=== PATIENT | female | born 1940 | race African-American/Black ===

== ENCOUNTER 2017-12-02 13:25 | Emergency (ER) | payer MEDICARE, MEDICAID ==
[~2017-12-02] VITALS: Ht 154.9 cm; Wt 78.0 kg
[~2017-12-02 13:25] MED LIST: ALBU6.7H IH; ASPI-986 PO; ATOR20TA PO; BACL-141 PO; BENZ100C86 PO; BIOTIN; CLOP75TA16 PO; DIPHENHYDRAMINE; FLUTICASONE; LORATADINE; MESA400T14 PO; MONT10TA21 PO; OMEP40CA34 PO; POTASSIUM; SYMBI INH; TRAM50TA3 PO
[2017-12-02] MEDS ORDERED: DEXAMETHASONE 4MG/ML 1ML VIAL IM ONE ×2 (18:45→19:00)
[2017-12-02] MEDS ORDERED: KETOROLAC 60MG/2ML VIAL IM ONE (18:45)
[2017-12-02 19:09] VITALS: BP 170/90
== END 2017-12-02 19:21 | disposition home or self-care (01) ==
LOC: ER 13:25
DX: M54.42 Lumbago with sciatica, left side (principal); L30.4 Erythema intertrigo; I10 Essential (primary) hypertension; Z88.0 Allergy status to penicillin; Z88.2 Allergy status to sulfonamides; Z88.1 Allergy status to other antibiotic agents; Z88.5 Allergy status to narcotic agent; Z88.8 Allergy status to other drugs, medicaments and biological substances; Z79.82 Long term (current) use of aspirin; Z79.01 Long term (current) use of anticoagulants
CPT/HCPCS: 96372; 99284; J1100; J1885

== ENCOUNTER 2018-09-13 11:21 | Inpatient (IN) | payer MEDICARE, MEDICAID ==
[~2018-09-13] VITALS: Ht 156.2 cm; Wt 69.4 kg
[2018-09-13] MEDS ORDERED: ACETAMINOPHEN 325MG TABLET PO STA (12:55)
[2018-09-13] MEDS ORDERED: ASPIRIN 325MG EC TABLET PO ONE (13:00)
[2018-09-13 13:22] LABS: BASOPHILS % 1.1 % (0.0-2.0); EOSINOPHILS % 0.4 % (0.0-5.0); HEMATOCRIT. 38.3 % (36.0-48.0); HEMOGLOBIN. 12.6 g/dL (12.0-16.0); LYMPHOCYTES % 42.1 % (20.0-50.0); MEAN CORPUSCULAR HEMOGLOBIN 26.9 pg (28.0-32.0); MEAN CORPUSCULAR VOLUME 81.5 fL (81.0-99.0); MEAN PLATELET VOLUME 7.3 fl (7.4-10.4); MONOCYTES % 7.3 % (2.0-8.0); NEUTROPHILS % 49.1 % (40.0-76.0); PLATELET 214 x1000/uL (130-400); RED CELL DISTRIBUTION WIDTH 16.3 % (11.6-14.6)
[2018-09-13 13:28] LABS: CHLORIDE 104 mEq/L (98-107)
[2018-09-13] MEDS ORDERED: BENZONATATE 100MG CAPSULE PO PRN (19:00)
[2018-09-13] MEDS ORDERED: ONDANSETRON HCL 4MG/2ML INJ IV PRN (19:00)
[2018-09-13] MEDS ORDERED: GUAIFENESIN 200MG/10ML SUGAR FREE UDC PO PRN (19:00)
[2018-09-13] MEDS ORDERED: IPRATROPIUM/ALBUTEROL 0.5-3(2.5)MG/3ML NEB INH PRN (19:00)
[2018-09-13] MEDS ORDERED: DOCUSATE SODIUM 100MG CAPSULE PO PRN (19:00)
[2018-09-13] MEDS ORDERED: CLONIDINE 0.1MG TABLET PO PRN (19:00)
[2018-09-13] MEDS ORDERED: DIPHENHYDRAMINE 50MG CAPSULE PO PRN (19:00)
[2018-09-13] MEDS ORDERED: BACLOFEN 10MG TABLET PO PRN (19:00)
[2018-09-13 20:00] VITALS: BP 126/57
[2018-09-13] MEDS: ATORVASTATIN CALCIUM 20MG TABLET PO SCH (21:43)
[2018-09-13] MEDS ORDERED: LORA10TA7 PO (22:27)
[2018-09-13] MEDS ORDERED: RANO10003 PO (22:31)
[2018-09-13] MEDS ORDERED: HYDR25TA PO (22:32)
[2018-09-13] MEDS ORDERED: ATEN50TA PO (22:33)
[2018-09-13] MEDS ORDERED: BUDE6HFA INH (22:34)
[2018-09-14] MEDS: BUDESONIDE 0.5MG/2ML NEB HHN SCH ×3 (00:09→20:21)
[2018-09-14] MEDS: ALBUTEROL (0.083%) 2.5MG/3ML NEB HHN SCH ×4 (00:09→20:21)
[2018-09-14 00:36] VITALS: BP 105/57
[2018-09-14 04:00] VITALS: BP 109/56
[2018-09-14 07:00] LABS: BASOPHILS % 0.4 % (0.0-2.0); EOSINOPHILS % 0.3 % (0.0-5.0); HEMATOCRIT. 35.9 % (36.0-48.0); HEMOGLOBIN. 12.1 g/dL (12.0-16.0); LYMPHOCYTES % 39.6 % (20.0-50.0); MEAN CORPUSCULAR HEMOGLOBIN 27.4 pg (28.0-32.0); MEAN CORPUSCULAR VOLUME 81.4 fL (81.0-99.0); MEAN PLATELET VOLUME 7.5 fl (7.4-10.4); MONOCYTES % 7.2 % (2.0-8.0); NEUTROPHILS % 52.5 % (40.0-76.0); PLATELET 207 x1000/uL (130-400); RED BLOOD CELL COUNT 4.41 mill/uL (4.2-5.4)
[2018-09-14 08:05] VITALS: BP 115/58
[2018-09-14] MEDS: MESALAMINE 400 MG CAPSULE.DR PO SCH ×3 (08:38→16:09)
[2018-09-14] MEDS: OMEPRAZOLE 20MG CAPSULE EXTENDED RELEASE PO SCH (08:38)
[2018-09-14] MEDS: CLOPIDOGREL 75MG TABLET PO SCH (08:38)
[2018-09-14] MEDS: ATENOLOL 50 MG TABLET PO SCH (08:39)
[2018-09-14] MEDS: ASPIRIN 325MG EC TABLET PO SCH (08:39)
[2018-09-14] MEDS ORDERED: FLUTICASONE/VILANTEROL 200-25 BLST.W.DEV ORI SCH (09:00)
[2018-09-14 10:05] LABS: CHLORIDE 105 mEq/L (98-107)
[2018-09-14 12:00] VITALS: BP 112/62
[2018-09-14] MEDS: ACETAMINOPHEN 325MG TABLET PO PRN (13:46)
[2018-09-14] MEDS: NITROGLYCERIN OINT 1GM/INCH UDPKT TD SCH ×2 (13:47→21:44)
[2018-09-14 16:00] VITALS: BP 97/48
[2018-09-14] MEDS ORDERED: MONTELUKAST SODIUM 10MG TABLET PO SCH (17:00)
[2018-09-14 20:00] VITALS: BP 112/65
[2018-09-14] MEDS: ATORVASTATIN CALCIUM 20MG TABLET PO SCH (21:44)
[2018-09-15] VITALS: BP 123/72
[2018-09-15] MEDS: ALBUTEROL (0.083%) 2.5MG/3ML NEB HHN SCH ×2 (01:50→09:46)
[2018-09-15 04:00] VITALS: BP 98/54
[2018-09-15] MEDS: ACETAMINOPHEN 325MG TABLET PO PRN (04:08)
[2018-09-15] MEDS: NITROGLYCERIN OINT 1GM/INCH UDPKT TD SCH ×2 (05:53→14:00)
[2018-09-15 07:34] LABS: BASOPHILS % 0.3 % (0.0-2.0); EOSINOPHILS % 0.1 % (0.0-5.0); HEMATOCRIT. 35.3 % (36.0-48.0); HEMOGLOBIN. 11.6 g/dL (12.0-16.0); LYMPHOCYTES % 36.9 % (20.0-50.0); MEAN CORPUSCULAR HEMOGLOBIN 26.8 pg (28.0-32.0); MEAN CORPUSCULAR VOLUME 81.3 fL (81.0-99.0); MEAN PLATELET VOLUME 7.5 fl (7.4-10.4); MONOCYTES % 7.4 % (2.0-8.0); NEUTROPHILS % 55.3 % (40.0-76.0); PLATELET 204 x1000/uL (130-400); RED BLOOD CELL COUNT 4.34 mill/uL (4.2-5.4)
[2018-09-15 08:00] VITALS: BP 103/51
[2018-09-15 08:10] LABS: CHLORIDE 106 mEq/L (98-107)
[2018-09-15] MEDS: ATENOLOL 50 MG TABLET PO SCH (09:00)
[2018-09-15] MEDS: ASPIRIN 325MG EC TABLET PO SCH (09:09)
[2018-09-15] MEDS: OMEPRAZOLE 20MG CAPSULE EXTENDED RELEASE PO SCH (09:09)
[2018-09-15] MEDS: CLOPIDOGREL 75MG TABLET PO SCH (09:09)
[2018-09-15] MEDS: MESALAMINE 400 MG CAPSULE.DR PO SCH ×2 (09:09→12:02)
[2018-09-15] MEDS: THROAT LOZENGES-BENZOCAINE/MENTH/CETYLPYRD CL LOZENGES MM SCH ×2 (09:10→12:02)
[2018-09-15] MEDS: BUDESONIDE 0.5MG/2ML NEB HHN SCH (09:46)
[2018-09-15 12:00] VITALS: BP 120/64
[2018-09-15 13:49] VITALS: BP 120/64
[2018-09-16] MEDS ORDERED: FAMOTIDINE 20MG TABLET PO SCH (09:00)
[2018-09-17 23:32] LABS: VITAMIN B12 SERUM 360 pg/mL (211-911)
== END 2018-09-15 15:28 | disposition home or self-care (01) | DRG 313 ==
LOC: ER 12:55 → 7WST 14:52 → EDBEDREQ 14:53 → EDBEDREQTM 14:53 → ENRESERV 15:26
PROVIDERS: ADMIT Internal Medicine; ATTEND Internal Medicine
DX: R07.9 Chest pain, unspecified (principal); K51.911 Ulcerative colitis, unspecified with rectal bleeding; I42.9 Cardiomyopathy, unspecified; K51.90 Ulcerative colitis, unspecified, without complications; J02.9 Acute pharyngitis, unspecified; I50.9 Heart failure, unspecified; J44.9 Chronic obstructive pulmonary disease, unspecified; M19.90 Unspecified osteoarthritis, unspecified site; D63.8 Anemia in other chronic diseases classified elsewhere; J38.2 Nodules of vocal cords; I25.10 Atherosclerotic heart disease of native coronary artery without angina pectoris; E04.2 Nontoxic multinodular goiter; G47.33 Obstructive sleep apnea (adult) (pediatric); I11.0 Hypertensive heart disease with heart failure; I73.9 Peripheral vascular disease, unspecified; R00.1 Bradycardia, unspecified; J32.0 Chronic maxillary sinusitis; Z82.3 Family history of stroke; Z82.49 Family history of ischemic heart disease and other diseases of the circulatory system; Z83.3 Family history of diabetes mellitus; Z86.718 Personal history of other venous thrombosis and embolism; Z90.710 Acquired absence of both cervix and uterus; I25.2 Old myocardial infarction; Z95.5 Presence of coronary angioplasty implant and graft; Z88.0 Allergy status to penicillin; Z88.2 Allergy status to sulfonamides; Z88.1 Allergy status to other antibiotic agents; Z88.8 Allergy status to other drugs, medicaments and biological substances; Z79.51 Long term (current) use of inhaled steroids; Z79.899 Other long term (current) drug therapy; Z79.82 Long term (current) use of aspirin
CPT/HCPCS: 36415; 70490; 71045; 80048; 82040; 82607; 83880; 84439; 84484; 93005; 93306; 94640; 99285; J7611; J7626

== ENCOUNTER 2019-01-19 10:12 | Inpatient (IN) | payer MEDICAID, MEDICARE ==
[~2019-01-19] VITALS: Ht 154.9 cm; Wt 74.4 kg
[~2019-01-19 10:12] MED LIST changes: +ATEN50TA PO; -BIOTIN; +BUDE6HFA INH; -DIPHENHYDRAMINE; -FLUTICASONE; +HYDR25TA PO; +LORA10TA7 PO; -LORATADINE; -POTASSIUM; +RANO10003 PO; -SYMBI INH; -TRAM50TA3 PO
[2019-01-19] MEDS ORDERED: SODIUM CHLORIDE 0.9% 1,000 ML IV ONE (11:26)
[2019-01-19] MEDS ORDERED: ACETAMINOPHEN 325MG TABLET PO STA (11:26)
[2019-01-19 11:53] LABS: BASOPHILS % 1.1 % (0.0-2.0); EOSINOPHILS % 0.4 % (0.0-5.0); HEMATOCRIT. 37.5 % (36.0-48.0); HEMOGLOBIN. 12.3 g/dL (12.0-16.0); LYMPHOCYTES % 25.8 % (20.0-50.0); MEAN CORPUSCULAR HEMOGLOBIN 27.9 pg (28.0-32.0); MEAN CORPUSCULAR VOLUME 84.9 fL (81.0-99.0); MONOCYTES % 6.9 % (2.0-8.0); NEUTROPHILS % 65.8 % (40.0-76.0); PLATELET 225 x1000/uL (130-400); RED BLOOD CELL COUNT 4.42 mill/uL (4.2-5.4)
[2019-01-19 11:55] LABS: CHLORIDE 106 mEq/L (98-107)
[2019-01-19] MEDS ORDERED: METHYLPREDNISOLONE SOD SUCC 125 MG/2 ML VIAL IV SCH (14:00)
[2019-01-19] MEDS ORDERED: ALBUTEROL (0.083%) 2.5MG/3ML NEB HHN ONE (14:00)
[2019-01-19] MEDS ORDERED: POTASSIUM CHLORIDE 20MEQ TABLET SR PO ONE (14:45)
[2019-01-19 15:53] LABS: CLARITY URINE CLEAR (CLEAR); COLOR URINE YELLOW (YELLOW); KETONES URINE NEGATIVE (NEGATIVE); LEUKOCYTE ESTERASE URINE TRACE (NEGATIVE); NITRITE URINE NEGATIVE (NEGATIVE); OCCULT BLOOD URINE NEGATIVE (NEGATIVE); PH URINE 7.5 (4.5-8.0); PROTEIN URINE NEGATIVE (NEGATIVE); SPECIFIC GRAVITY URINE 1.013 (1.005-1.030); UROBILINOGEN URINE 0.2 E.U./dL (0.2-1.0)
[2019-01-19 17:20] VITALS: BP 155/72
[2019-01-19] MEDS ORDERED: DOCUSATE SODIUM 100MG CAPSULE PO PRN (19:45)
[2019-01-19] MEDS ORDERED: CLONIDINE 0.1MG TABLET PO PRN (19:45)
[2019-01-19] MEDS ORDERED: LORAZEPAM 0.5MG TABLET PO PRN (19:45)
[2019-01-19] MEDS ORDERED: IPRATROPIUM/ALBUTEROL 0.5-3(2.5)MG/3ML NEB INH PRN (19:45)
[2019-01-19] MEDS ORDERED: ONDANSETRON HCL 4MG/2ML INJ IV PRN (19:45)
[2019-01-19 20:00] VITALS: BP 141/75
[2019-01-19] MEDS ORDERED: ALBUTEROL 6.7GM HFA INHALER ORI PRN (20:15)
[2019-01-19] MEDS: DEXT 5%/0.45% NACL 1000ML 1,000 ML IV SCH (21:13)
[2019-01-19] MEDS: METHYLPREDNISOLONE SOD SUCC 40 MG/ML VIAL IV SCH (21:17)
[2019-01-19] MEDS: BENZONATATE 100MG CAPSULE PO SCH (21:18)
[2019-01-19] MEDS ORDERED: ALBUTEROL (0.083%) 2.5MG/3ML NEB HHN PRN (22:00)
[2019-01-19] MEDS: MONTELUKAST SODIUM 10MG TABLET PO SCH (22:13)
[2019-01-19] MEDS: POTASSIUM CHLORIDE 20MEQ TABLET SR PO SCH (22:13)
[2019-01-19] MEDS: ATORVASTATIN CALCIUM 20MG TABLET PO SCH (22:13)
[2019-01-19] MEDS: OMEPRAZOLE 20MG CAPSULE EXTENDED RELEASE PO SCH (22:13)
[2019-01-19] MEDS: RANOLAZINE 500 MG TAB.SR.12H PO SCH (22:14)
[2019-01-20] VITALS: BP 153/79
[2019-01-20] MEDS: IPRATROPIUM/ALBUTEROL 0.5-3(2.5)MG/3ML NEB HHN SCH ×6 (01:55→21:14)
[2019-01-20 04:00] VITALS: BP 158/83
[2019-01-20] MEDS: METHYLPREDNISOLONE SOD SUCC 40 MG/ML VIAL IV SCH ×3 (05:36→21:48)
[2019-01-20] MEDS: OMEPRAZOLE 20MG CAPSULE EXTENDED RELEASE PO SCH (05:36)
[2019-01-20] MEDS: BENZONATATE 100MG CAPSULE PO SCH ×3 (05:36→21:30)
[2019-01-20] MEDS ORDERED: ALBUTEROL (0.083%) 2.5MG/3ML NEB HHN SCH (06:00)
[2019-01-20 08:00] VITALS: BP 150/86
[2019-01-20 08:01] LABS: BASOPHILS % 0.1 % (0.0-2.0); HEMATOCRIT. 37.2 % (36.0-48.0); HEMOGLOBIN. 12.5 g/dL (12.0-16.0); LYMPHOCYTES % 9.9 % (20.0-50.0); MEAN CORPUSCULAR HEMOGLOBIN 28.3 pg (28.0-32.0); MEAN CORPUSCULAR VOLUME 84.2 fL (81.0-99.0); MEAN PLATELET VOLUME 7.3 fl (7.4-10.4); MONOCYTES % 1.3 % (2.0-8.0); NEUTROPHILS % 88.7 % (40.0-76.0); PLATELET 228 x1000/uL (130-400); RED BLOOD CELL COUNT 4.41 mill/uL (4.2-5.4); RED CELL DISTRIBUTION WIDTH 15.7 % (11.6-14.6)
[2019-01-20] MEDS: CLOPIDOGREL 75MG TABLET PO SCH (08:15)
[2019-01-20] MEDS: RANOLAZINE 500 MG TAB.SR.12H PO SCH ×2 (08:15→21:30)
[2019-01-20] MEDS: POTASSIUM CHLORIDE 20MEQ TABLET SR PO SCH (08:15)
[2019-01-20] MEDS: HYDROCHLOROTHIAZIDE 25MG TABLET PO SCH (08:15)
[2019-01-20] MEDS: MESALAMINE 400 MG CAPSULE.DR PO SCH ×3 (08:15→17:08)
[2019-01-20 08:16] LABS: CHLORIDE 111 mEq/L (98-107)
[2019-01-20] MEDS: ATENOLOL 50 MG TABLET PO SCH (08:16)
[2019-01-20 08:22] LABS: PHOSPHORUS 1.5 mg/dL (2.5-4.9)
[2019-01-20] MEDS ORDERED: FLUTICASONE/VILANTEROL 200-25 BLST.W.DEV ORI SCH (09:00)
[2019-01-20] MEDS: BUDESONIDE 0.5MG/2ML NEB HHN SCH ×2 (09:20→21:14)
[2019-01-20] MEDS: GUAIFENESIN 200MG/10ML SUGAR FREE UDC PO PRN (10:26)
[2019-01-20 12:00] VITALS: BP 144/72
[2019-01-20] MEDS: ACETAMINOPHEN 325MG TABLET PO PRN ×2 (12:15→17:15)
[2019-01-20] MEDS: GUAIFENESIN-DM 200MG-20MG/10ML UDC PO PRN (14:41)
[2019-01-20] MEDS: ENOXAPARIN 40MG/0.4ML SYR SUBCUT SCH (14:42)
[2019-01-20] MEDS: DEXT 5%/0.45% NACL 1000ML 1,000 ML IV SCH (14:52)
[2019-01-20 16:00] VITALS: BP 148/79
[2019-01-20] MEDS: MONTELUKAST SODIUM 10MG TABLET PO SCH (17:08)
[2019-01-20 20:22] VITALS: BP 135/73
[2019-01-20] MEDS: ATORVASTATIN CALCIUM 20MG TABLET PO SCH (21:30)
[2019-01-21] VITALS: BP 146/70
[2019-01-21] MEDS: IPRATROPIUM/ALBUTEROL 0.5-3(2.5)MG/3ML NEB HHN SCH ×4 (00:34→20:15)
[2019-01-21 04:00] VITALS: BP 141/75
[2019-01-21] MEDS: METHYLPREDNISOLONE SOD SUCC 40 MG/ML VIAL IV SCH ×3 (06:21→21:03)
[2019-01-21] MEDS: OMEPRAZOLE 20MG CAPSULE EXTENDED RELEASE PO SCH (07:04)
[2019-01-21] MEDS: BENZONATATE 100MG CAPSULE PO SCH ×3 (07:05→21:04)
[2019-01-21 08:00] VITALS: BP 126/78
[2019-01-21] MEDS: BUDESONIDE 0.5MG/2ML NEB HHN SCH ×2 (08:20→20:15)
[2019-01-21] MEDS: MESALAMINE 400 MG CAPSULE.DR PO SCH ×3 (08:45→16:51)
[2019-01-21] MEDS: POTASSIUM CHLORIDE 20MEQ TABLET SR PO SCH (08:45)
[2019-01-21] MEDS: HYDROCHLOROTHIAZIDE 25MG TABLET PO SCH (08:45)
[2019-01-21] MEDS: ATENOLOL 50 MG TABLET PO SCH (08:46)
[2019-01-21] MEDS: CLOPIDOGREL 75MG TABLET PO SCH (08:46)
[2019-01-21] MEDS: ENOXAPARIN 40MG/0.4ML SYR SUBCUT SCH (08:46)
[2019-01-21] MEDS: RANOLAZINE 500 MG TAB.SR.12H PO SCH ×2 (08:46→21:04)
[2019-01-21] MEDS: GUAIFENESIN-DM 200MG-20MG/10ML UDC PO PRN ×3 (08:50→16:51)
[2019-01-21] MEDS: ACETAMINOPHEN 325MG TABLET PO PRN ×2 (10:47→16:57)
[2019-01-21 12:00] VITALS: BP 133/88
[2019-01-21 16:00] VITALS: BP 136/82
[2019-01-21] MEDS: MONTELUKAST SODIUM 10MG TABLET PO SCH (16:51)
[2019-01-21] MEDS: DEXT 5%/0.45% NACL 1000ML 1,000 ML IV SCH ×2 (16:58→21:04)
[2019-01-21 20:27] VITALS: BP 155/78
[2019-01-21] MEDS: ATORVASTATIN CALCIUM 20MG TABLET PO SCH (21:04)
[2019-01-22 00:13] VITALS: BP 151/71
[2019-01-22] MEDS: IPRATROPIUM/ALBUTEROL 0.5-3(2.5)MG/3ML NEB HHN SCH ×4 (00:26→21:37)
[2019-01-22 04:00] VITALS: BP 130/69
[2019-01-22 06:14] LABS: HEMATOCRIT. 35.1 % (36.0-48.0); HEMOGLOBIN. 11.7 g/dL (12.0-16.0); MEAN PLATELET VOLUME 7.5 fl (7.4-10.4); PLATELET 223 x1000/uL (130-400); RED BLOOD CELL COUNT 4.18 mill/uL (4.2-5.4); RED CELL DISTRIBUTION WIDTH 16.1 % (11.6-14.6)
[2019-01-22] MEDS: METHYLPREDNISOLONE SOD SUCC 40 MG/ML VIAL IV SCH ×3 (06:30→21:13)
[2019-01-22] MEDS: BENZONATATE 100MG CAPSULE PO SCH ×3 (06:30→21:13)
[2019-01-22] MEDS: OMEPRAZOLE 20MG CAPSULE EXTENDED RELEASE PO SCH (06:30)
[2019-01-22] MEDS: ACETAMINOPHEN 325MG TABLET PO PRN (06:36)
[2019-01-22 07:20] LABS: CHLORIDE 108 mEq/L (98-107)
[2019-01-22 07:31] LABS: PHOSPHORUS 3.1 mg/dL (2.5-4.9)
[2019-01-22 09:00] VITALS: BP 139/82
[2019-01-22] MEDS: MESALAMINE 400 MG CAPSULE.DR PO SCH ×3 (09:25→18:29)
[2019-01-22] MEDS: HYDROCHLOROTHIAZIDE 25MG TABLET PO SCH (09:26)
[2019-01-22] MEDS: POTASSIUM CHLORIDE 20MEQ TABLET SR PO SCH (09:26)
[2019-01-22] MEDS: CLOPIDOGREL 75MG TABLET PO SCH (09:26)
[2019-01-22] MEDS: ATENOLOL 50 MG TABLET PO SCH (09:26)
[2019-01-22] MEDS: RANOLAZINE 500 MG TAB.SR.12H PO SCH ×2 (09:26→21:13)
[2019-01-22] MEDS: ENOXAPARIN 40MG/0.4ML SYR SUBCUT SCH (09:27)
[2019-01-22 12:00] VITALS: BP 130/70
[2019-01-22 13:39] LABS: PLATELET ESTIMATE NORMAL
[2019-01-22] MEDS: DEXT 5%/0.45% NACL 1000ML 1,000 ML IV SCH (14:55)
[2019-01-22 16:00] VITALS: BP 135/70
[2019-01-22] MEDS: MONTELUKAST SODIUM 10MG TABLET PO SCH (18:29)
[2019-01-22 20:10] VITALS: BP 135/72
[2019-01-22] MEDS: ATORVASTATIN CALCIUM 20MG TABLET PO SCH (21:13)
[2019-01-23] VITALS: BP 129/75
[2019-01-23] MEDS: GUAIFENESIN-DM 200MG-20MG/10ML UDC PO PRN ×2 (00:31→10:47)
[2019-01-23] MEDS: IPRATROPIUM/ALBUTEROL 0.5-3(2.5)MG/3ML NEB HHN SCH ×5 (02:23→20:45)
[2019-01-23 04:00] VITALS: BP 164/94
[2019-01-23] MEDS: METHYLPREDNISOLONE SOD SUCC 40 MG/ML VIAL IV SCH ×3 (05:49→21:13)
[2019-01-23] MEDS: BENZONATATE 100MG CAPSULE PO SCH ×3 (05:49→21:13)
[2019-01-23] MEDS: DEXT 5%/0.45% NACL 1000ML 1,000 ML IV SCH ×2 (05:49→23:45)
[2019-01-23] MEDS: OMEPRAZOLE 20MG CAPSULE EXTENDED RELEASE PO SCH (05:49)
[2019-01-23] MEDS: ACETAMINOPHEN 325MG TABLET PO PRN ×2 (06:37→21:13)
[2019-01-23] MEDS: MESALAMINE 400 MG CAPSULE.DR PO SCH ×3 (10:34→18:36)
[2019-01-23] MEDS: CLOPIDOGREL 75MG TABLET PO SCH (10:35)
[2019-01-23] MEDS: ATENOLOL 50 MG TABLET PO SCH (10:35)
[2019-01-23] MEDS: POTASSIUM CHLORIDE 20MEQ TABLET SR PO SCH (10:35)
[2019-01-23] MEDS: HYDROCHLOROTHIAZIDE 25MG TABLET PO SCH (10:36)
[2019-01-23] MEDS: RANOLAZINE 500 MG TAB.SR.12H PO SCH ×2 (10:36→21:13)
[2019-01-23] MEDS: ENOXAPARIN 40MG/0.4ML SYR SUBCUT SCH (10:37)
[2019-01-23 12:30] VITALS: BP 153/71
[2019-01-23] MEDS: BACLOFEN 10MG TABLET PO PRN (15:54)
[2019-01-23 16:00] VITALS: BP 156/74
[2019-01-23] MEDS: MONTELUKAST SODIUM 10MG TABLET PO SCH (18:36)
[2019-01-23 20:00] VITALS: BP 149/71
[2019-01-23] MEDS: ATORVASTATIN CALCIUM 20MG TABLET PO SCH (21:13)
[2019-01-24] VITALS: BP 152/85
[2019-01-24] MEDS: IPRATROPIUM/ALBUTEROL 0.5-3(2.5)MG/3ML NEB HHN SCH ×6 (00:38→20:31)
[2019-01-24] MEDS: GUAIFENESIN-DM 200MG-20MG/10ML UDC PO PRN (01:05)
[2019-01-24 04:00] VITALS: BP 138/69
[2019-01-24] MEDS: METHYLPREDNISOLONE SOD SUCC 40 MG/ML VIAL IV SCH ×3 (06:10→21:25)
[2019-01-24] MEDS: BENZONATATE 100MG CAPSULE PO SCH ×3 (06:10→21:25)
[2019-01-24] MEDS: OMEPRAZOLE 20MG CAPSULE EXTENDED RELEASE PO SCH (06:11)
[2019-01-24] MEDS: ACETAMINOPHEN 325MG TABLET PO PRN (06:16)
[2019-01-24] MEDS: RANOLAZINE 500 MG TAB.SR.12H PO SCH ×2 (09:04→21:25)
[2019-01-24] MEDS: ENOXAPARIN 40MG/0.4ML SYR SUBCUT SCH (09:04)
[2019-01-24] MEDS: ATENOLOL 50 MG TABLET PO SCH (09:05)
[2019-01-24] MEDS: MESALAMINE 400 MG CAPSULE.DR PO SCH ×3 (09:05→17:31)
[2019-01-24] MEDS: CLOPIDOGREL 75MG TABLET PO SCH (09:05)
[2019-01-24] MEDS: POTASSIUM CHLORIDE 20MEQ TABLET SR PO SCH (09:06)
[2019-01-24] MEDS: HYDROCHLOROTHIAZIDE 25MG TABLET PO SCH (10:23)
[2019-01-24 12:00] VITALS: BP 142/69
[2019-01-24 16:00] VITALS: BP 144/72
[2019-01-24] MEDS: MONTELUKAST SODIUM 10MG TABLET PO SCH (17:31)
[2019-01-24] MEDS: DEXT 5%/0.45% NACL 1000ML 1,000 ML IV SCH (17:36)
[2019-01-24 20:00] VITALS: BP 158/79
[2019-01-24] MEDS: ATORVASTATIN CALCIUM 20MG TABLET PO SCH (21:25)
[2019-01-25] VITALS (8 sets, daily range): BP systolic 139–162; BP diastolic 70–85
[2019-01-25] MEDS: IPRATROPIUM/ALBUTEROL 0.5-3(2.5)MG/3ML NEB HHN SCH ×5 (00:13→15:55)
[2019-01-25] MEDS: GUAIFENESIN-DM 200MG-20MG/10ML UDC PO PRN ×3 (04:38→22:37)
[2019-01-25] MEDS: OMEPRAZOLE 20MG CAPSULE EXTENDED RELEASE PO SCH (06:32)
[2019-01-25] MEDS: BENZONATATE 100MG CAPSULE PO SCH ×3 (06:32→21:24)
[2019-01-25] MEDS: METHYLPREDNISOLONE SOD SUCC 40 MG/ML VIAL IV SCH ×3 (06:33→21:24)
[2019-01-25] MEDS: MESALAMINE 400 MG CAPSULE.DR PO SCH ×3 (07:50→17:50)
[2019-01-25] MEDS: GUAIFENESIN 200MG/10ML SUGAR FREE UDC PO PRN (10:08)
[2019-01-25] MEDS: RANOLAZINE 500 MG TAB.SR.12H PO SCH ×2 (10:09→21:24)
[2019-01-25] MEDS: ENOXAPARIN 40MG/0.4ML SYR SUBCUT SCH (10:09)
[2019-01-25] MEDS: HYDROCHLOROTHIAZIDE 25MG TABLET PO SCH (10:10)
[2019-01-25] MEDS: POTASSIUM CHLORIDE 20MEQ TABLET SR PO SCH (10:10)
[2019-01-25] MEDS: CLOPIDOGREL 75MG TABLET PO SCH (10:10)
[2019-01-25] MEDS: BACLOFEN 10MG TABLET PO PRN (10:10)
[2019-01-25] MEDS: DEXT 5%/0.45% NACL 1000ML 1,000 ML IV SCH (10:11)
[2019-01-25] MEDS: ATENOLOL 50 MG TABLET PO SCH (10:11)
[2019-01-25] MEDS: MONTELUKAST SODIUM 10MG TABLET PO SCH (17:00)
[2019-01-25] MEDS: ATORVASTATIN CALCIUM 20MG TABLET PO SCH (21:24)
[2019-01-26] MEDS: IPRATROPIUM/ALBUTEROL 0.5-3(2.5)MG/3ML NEB HHN SCH ×4 (01:04→12:00)
[2019-01-26] MEDS: DEXT 5%/0.45% NACL 1000ML 1,000 ML IV SCH ×2 (01:19→09:23)
[2019-01-26 03:59] VITALS: BP 170/88
[2019-01-26] MEDS: ACETAMINOPHEN 325MG TABLET PO PRN (06:38)
[2019-01-26] MEDS: BENZONATATE 100MG CAPSULE PO SCH ×2 (06:39→14:28)
[2019-01-26] MEDS: METHYLPREDNISOLONE SOD SUCC 40 MG/ML VIAL IV SCH ×2 (06:39→14:29)
[2019-01-26] MEDS: OMEPRAZOLE 20MG CAPSULE EXTENDED RELEASE PO SCH (06:39)
[2019-01-26 07:16] LABS: BASOPHILS % 0.2 % (0.0-2.0); EOSINOPHILS % 0.4 % (0.0-5.0); HEMOGLOBIN. 13.4 g/dL (12.0-16.0); LYMPHOCYTES % 9.9 % (20.0-50.0); MEAN CORPUSCULAR VOLUME 83.5 fL (81.0-99.0); MEAN PLATELET VOLUME 7.1 fl (7.4-10.4); MONOCYTES % 4.3 % (2.0-8.0); NEUTROPHILS % 85.2 % (40.0-76.0); PLATELET 240 x1000/uL (130-400); RED BLOOD CELL COUNT 4.79 mill/uL (4.2-5.4); RED CELL DISTRIBUTION WIDTH 15.4 % (11.6-14.6)
[2019-01-26 07:31] LABS: CHLORIDE 100 mEq/L (98-107)
[2019-01-26 07:59] VITALS: BP 142/69
[2019-01-26] MEDS: ATENOLOL 50 MG TABLET PO SCH (09:00)
[2019-01-26] MEDS: HYDROCHLOROTHIAZIDE 25MG TABLET PO SCH (09:24)
[2019-01-26] MEDS: ENOXAPARIN 40MG/0.4ML SYR SUBCUT SCH (09:24)
[2019-01-26] MEDS: POTASSIUM CHLORIDE 20MEQ TABLET SR PO SCH (09:24)
[2019-01-26] MEDS: RANOLAZINE 500 MG TAB.SR.12H PO SCH (09:24)
[2019-01-26] MEDS: MESALAMINE 400 MG CAPSULE.DR PO SCH ×3 (09:24→16:56)
[2019-01-26] MEDS: CLOPIDOGREL 75MG TABLET PO SCH (09:24)
[2019-01-26 12:12] VITALS: BP 149/83
[2019-01-26 13:12] VITALS: BP 149/83
[2019-01-26 16:44] VITALS: BP 164/85
[2019-01-26] MEDS: MONTELUKAST SODIUM 10MG TABLET PO SCH (16:56)
== END 2019-01-26 17:15 | disposition home or self-care (01) | DRG 202 ==
LOC: ER 10:12 → 6WST 14:35 → EDBEDREQ 14:42 → EDBEDREQTM 14:42 → EDBEDREQSVC 14:42 → ENRESERV 15:22
PROVIDERS: ADMIT Internal Medicine; ATTEND Internal Medicine
DX: J45.901 Unspecified asthma with (acute) exacerbation (principal); I42.9 Cardiomyopathy, unspecified; K51.90 Ulcerative colitis, unspecified, without complications; J44.9 Chronic obstructive pulmonary disease, unspecified; I50.9 Heart failure, unspecified; I11.0 Hypertensive heart disease with heart failure; I25.10 Atherosclerotic heart disease of native coronary artery without angina pectoris; R49.0 Dysphonia; M19.90 Unspecified osteoarthritis, unspecified site; G47.33 Obstructive sleep apnea (adult) (pediatric); E87.6 Hypokalemia; R06.03 Acute respiratory distress; M54.5 Low back pain; G89.29 Other chronic pain; I25.2 Old myocardial infarction; Z83.3 Family history of diabetes mellitus; Z86.718 Personal history of other venous thrombosis and embolism; Z82.3 Family history of stroke; Z82.49 Family history of ischemic heart disease and other diseases of the circulatory system; Z90.710 Acquired absence of both cervix and uterus; Z95.5 Presence of coronary angioplasty implant and graft; Z88.6 Allergy status to analgesic agent; Z88.1 Allergy status to other antibiotic agents; Z88.0 Allergy status to penicillin; Z88.2 Allergy status to sulfonamides; Z88.8 Allergy status to other drugs, medicaments and biological substances; Z79.82 Long term (current) use of aspirin; Z79.899 Other long term (current) drug therapy
CPT/HCPCS: 36415; 71045; 71046; 80048; 82040; 82962; 83605; 83735; 83880; 84100; 84484; 85651; 87804; 93005; 93970; 94640; 96361; 96374; 97116; 97162; 97166; 99291; C1893; J1650; J2920; J2930; J7030; J7611; J7620; J7626

== ENCOUNTER 2019-05-08 12:51 | Emergency (ER) | payer MEDICARE, MEDICAID ==
[~2019-05-08] VITALS: Ht 167.6 cm; Wt 71.0 kg
[~2019-05-08 12:51] MED LIST changes: -CLOP75TA16 PO; +CLOP75TA4 PO; -OMEP40CA34 PO
[2019-05-08 14:35] LABS: CHLORIDE 108 mEq/L (98-107)
[2019-05-08 14:45] LABS: BASOPHILS % 0.4 % (0.0-2.0); EOSINOPHILS % 0.6 % (0.0-5.0); HEMATOCRIT. 33.6 % (36.0-48.0); HEMOGLOBIN. 11.1 g/dL (12.0-16.0); LYMPHOCYTES % 39.4 % (20.0-50.0); MEAN CORPUSCULAR HEMOGLOBIN 27.7 pg (28.0-32.0); MEAN CORPUSCULAR VOLUME 83.8 fL (81.0-99.0); MEAN PLATELET VOLUME 7.4 fl (7.4-10.4); MONOCYTES % 7.9 % (2.0-8.0); NEUTROPHILS % 51.7 % (40.0-76.0); PLATELET 209 x1000/uL (130-400); RED BLOOD CELL COUNT 4.01 mill/uL (4.2-5.4); RED CELL DISTRIBUTION WIDTH 14.8 % (11.6-14.6)
[2019-05-08] MEDS ORDERED: KCL 20MEQ/100ML PREMIX 100 ML IV NR (16:00)
[2019-05-08] MEDS ORDERED: POTASSIUM CHLORIDE 20MEQ TABLET SR PO NR (16:00)
[2019-05-08 18:10] VITALS: BP 177/88
== END 2019-05-08 18:24 | disposition home or self-care (01) ==
LOC: ER 12:51
DX: R60.0 Localized edema (principal); E87.6 Hypokalemia; F41.9 Anxiety disorder, unspecified; R42 Dizziness and giddiness; D64.9 Anemia, unspecified; E88.09 Other disorders of plasma-protein metabolism, not elsewhere classified; I11.0 Hypertensive heart disease with heart failure; I50.9 Heart failure, unspecified; Z98.890 Other specified postprocedural states; Z79.82 Long term (current) use of aspirin; Z79.899 Other long term (current) drug therapy; Z88.0 Allergy status to penicillin; Z88.2 Allergy status to sulfonamides; Z88.5 Allergy status to narcotic agent; Z88.1 Allergy status to other antibiotic agents; Z88.8 Allergy status to other drugs, medicaments and biological substances
CPT/HCPCS: 36415; 71045; 80053; 83880; 84484; 85025; 93005; 93970; 96365; 99284; J3480

== ENCOUNTER 2019-08-25 15:11 | Emergency (ER) | payer MEDICARE, MEDICAID ==
[~2019-08-25] VITALS: Ht 157.5 cm; Wt 69.0 kg
[2019-08-25] MEDS ORDERED: KETOROLAC 30MG/ML VIAL IV STA (16:41)
[2019-08-25] MEDS ORDERED: METOCLOPRAMIDE HCL 10MG/2ML VIAL IV ONE (16:45)
[2019-08-25 17:13] VITALS: BP 152/88
== END 2019-08-25 17:45 | disposition home or self-care (01) ==
LOC: ER 15:11
DX: B34.9 Viral infection, unspecified (principal); J02.9 Acute pharyngitis, unspecified; I10 Essential (primary) hypertension; E78.00 Pure hypercholesterolemia, unspecified; M19.90 Unspecified osteoarthritis, unspecified site; J45.909 Unspecified asthma, uncomplicated; Z88.3 Allergy status to other anti-infective agents; Z88.0 Allergy status to penicillin; Z88.2 Allergy status to sulfonamides; Z90.710 Acquired absence of both cervix and uterus; Z79.82 Long term (current) use of aspirin; Z88.8 Allergy status to other drugs, medicaments and biological substances
CPT/HCPCS: 71045; 96374; 96375; 99284; J1885; J2765

== ENCOUNTER 2019-10-30 14:16 | Emergency (ER) | payer MEDICARE, MEDICAID, OTHER ==
[~2019-10-30] VITALS: Ht 154.9 cm; Wt 73.0 kg
[~2019-10-30 14:16] MED LIST changes: -ALBU6.7H IH; +ALBU6.7H11 IH
[2019-10-30 19:15] VITALS: BP 137/71
== END 2019-10-30 19:15 | disposition home or self-care (01) ==
LOC: ER 14:28
DX: N61.0 Mastitis without abscess (principal); J45.909 Unspecified asthma, uncomplicated; I10 Essential (primary) hypertension; Z90.710 Acquired absence of both cervix and uterus; Z98.890 Other specified postprocedural states; Z79.899 Other long term (current) drug therapy; Z88.5 Allergy status to narcotic agent; Z88.2 Allergy status to sulfonamides; Z88.0 Allergy status to penicillin; Z88.1 Allergy status to other antibiotic agents; Z88.8 Allergy status to other drugs, medicaments and biological substances
CPT/HCPCS: 99283

== ENCOUNTER 2020-07-09 10:23 | Emergency (ER) | payer MEDICARE, OTHER ==
[~2020-07-09] VITALS: Ht 152.4 cm; Wt 76.0 kg
[2020-07-09 11:33] LABS: BASOPHILS % 0.7 % (0.0-2.0); EOSINOPHILS % 0.3 % (0.0-5.0); HEMATOCRIT. 41.1 % (36.0-48.0); HEMOGLOBIN. 13.6 g/dL (12.0-16.0); LYMPHOCYTES % 26.6 % (20.0-50.0); MEAN CORPUSCULAR HEMOGLOBIN 27.1 pg (28.0-32.0); MEAN CORPUSCULAR VOLUME 81.9 fL (81.0-99.0); MEAN PLATELET VOLUME 7.2 fl (7.4-10.4); NEUTROPHILS % 66.4 % (40.0-76.0); PLATELET 241 x1000/uL (130-400); RED BLOOD CELL COUNT 5.02 mill/uL (4.2-5.4); RED CELL DISTRIBUTION WIDTH 15.6 % (11.6-14.6)
[2020-07-09 11:36] LABS: CLARITY URINE CLOUDY (CLEAR); COLOR URINE DARK YELLOW (YELLOW); KETONES URINE 1+ (NEGATIVE); LEUKOCYTE ESTERASE URINE 1+ (NEGATIVE); NITRITE URINE NEGATIVE (NEGATIVE); OCCULT BLOOD URINE NEGATIVE (NEGATIVE); PROTEIN URINE TRACE (NEGATIVE); SPECIFIC GRAVITY URINE 1.029 (1.005-1.030)
[2020-07-09 11:39] LABS: CHLORIDE 105 mEq/L (98-107)
[2020-07-09 11:40] LABS: INR 1.1; PROTHROMBIN TIME 11.4 sec (9.6-11.0)
[2020-07-09] MEDS ORDERED: CEFTRIAXONE 1 G PREMIX 50 ML IV ONE (12:15)
[2020-07-09 14:00] VITALS: BP 145/67
== END 2020-07-09 15:55 | disposition home or self-care (01) ==
LOC: ER 10:23
DX: N39.0 Urinary tract infection, site not specified (principal); I10 Essential (primary) hypertension; M19.90 Unspecified osteoarthritis, unspecified site; Z79.82 Long term (current) use of aspirin; Z90.710 Acquired absence of both cervix and uterus; Z88.3 Allergy status to other anti-infective agents; Z88.5 Allergy status to narcotic agent; Z88.0 Allergy status to penicillin; Z88.8 Allergy status to other drugs, medicaments and biological substances
CPT/HCPCS: 36415; 80053; 81003; 85025; 85610; 93005; 96365; 99284; J0696

== ENCOUNTER 2021-03-26 14:37 | Emergency (ER) | payer MEDICARE, MEDICAID ==
[~2021-03-26] VITALS: Ht 157.5 cm; Wt 70.0 kg
[~2021-03-26 14:37] MED LIST changes: +CLOP-31 PO; -CLOP75TA4 PO
[2021-03-26 16:53] VITALS: BP 122/70
== END 2021-03-26 16:54 | disposition home or self-care (01) ==
LOC: ER 14:37
DX: M25.572 Pain in left ankle and joints of left foot (principal); I11.9 Hypertensive heart disease without heart failure; M19.90 Unspecified osteoarthritis, unspecified site; Z98.61 Coronary angioplasty status; Z79.82 Long term (current) use of aspirin; Z88.2 Allergy status to sulfonamides; Z88.8 Allergy status to other drugs, medicaments and biological substances; Z88.5 Allergy status to narcotic agent; Z88.3 Allergy status to other anti-infective agents; Z90.710 Acquired absence of both cervix and uterus; Z88.0 Allergy status to penicillin
CPT/HCPCS: 73610; 99283

== ENCOUNTER 2023-05-15 17:20 | Emergency (ER) | payer MEDICARE, MEDICAID ==
[~2023-05-15] VITALS: Ht 162.6 cm; Wt 78.0 kg
[~2023-05-15 17:20] MED LIST changes: -ALBU6.7H11 IH; +ALBU6.7H15 IH; +MONT-46 PO; -MONT10TA21 PO
[2023-05-15 17:36] VITALS: BP 105/69; PULSE 87; RESP 19; TEMP 98.3; O2SAT 100
== END 2023-05-15 23:30 | disposition left against medical advice (07) ==
LOC: ER 17:34
DX: Z53.21 Procedure and treatment not carried out due to patient leaving prior to being seen by health care provider (principal)
CPT/HCPCS: 99281